=== PATIENT | male | born 1960 | race Caucasian/White ===

== ENCOUNTER → 2017-11-03 | Outpatient (CLI) | payer OTHER ==
[~2017-11-03] VITALS: Ht 172.7 cm; Wt 115.7 kg
[~2017-11-03] MED LIST: ATORVASTATIN CA40 MG PO; GLUCOSAMINE CH1 EAC8 PO; GLYBURIDE 2.52.5 MG PO; LISINOPRIL-HCT1 EAC2 PO; LOPID600 MG PO; METFORMIN HCL1000 MG PO; ZOLPIDEM TARTRA10 MG PO
--- NOTE | ~2017-11-03 | S ---
[facility] [place] [address] SURGICAL PATH RPT PROCEDURE Name: OPAL KANG Room #: REG [facility]#: [id number] Admission: 11/03/17 Date of : 60 Discharge: Report #: [id number] Path Case #: [id number] PATHOLOGY REPORT COLLECTION DATE: 11/03/2017 RECEIVED DATE: 11/06/2017 SUBMITTING PHYS: Dr. Gordo Berman OTHER PHYS: Dr. Rahul Saldaña SPECIMEN(S) RECEIVED: A.Bx of polyp at splenic flexure B.Bx of polyp at 70 cm * * * * * * * * * * * * FINAL DIAGNOSIS: A. Polyp, at splenic flexure, endoscopic biopsy: - Minute tubular adenoma. - Negative for high-grade dysplasia. B. Polyp, at 70 cm, endoscopic biopsy: - Multiple fragments showing hyperplastic polyps. - Negative for dysplasia. (IUV:pit; 11/07/2017) PATHOLOGIST: Manjula Vasquez M.D. REPORT ELECTRONICALLY SIGNED BY: Manjula Vasquez M.D. DATE/TIME: 11/07/2017 17:20 * * * * * * * * * * * * GROSS PATHOLOGY: A. Received in formalin labeled "Opal Kang, biopsy of polyp at splenic flexure" and consists of 2 hernandez mucosal biopsies each averaging 0.3 cm. The specimen is totally submitted as A1. B. Received in formalin labeled "Opal Kang, BX of polyp at 70 cm X4" and consists of 3 hernandez mucosal biopsies each averaging 0.4 cm. No additional tissue is present within the specimen container. The specimen is totally submitted as B1. (RUPALI; 11/06/2017) CLINICAL HISTORY: History of polyps, family history of colon cancer INITIAL CPT CODE(S): A; 27704 B; 43355 Professional services performed by [employer] at [address] [address] SURGICAL PATH RPT PROCEDURE Name: OPAL KANG Room #: REG [facility]#: [id number] Admission: 11/03/17 Date of : 60 Discharge: Report #: [id number] Path Case #: [id number] [address], [place] [address] Technical services performed by [employer] at [address] [place] [address], [facility] [address] [address]. [place] [address] PHONE: [phone] DIRECTOR: Brian Jackson M.D. * * * END OF REPORT * * *
--- NOTE | ~2017-11-03 | P ---
[facility] [place] [address] PROCEDURE REPORT Name: OPAL SABILLON Room #: REG [facility]#: [id number] Admission: 11/03/17 Attend Phys: Gordo Berman MD Discharge: Date of : 60 Report #: [id number] THIS REPORT FOR: //name// CC: Gordo Saldaña MD BRIEF HISTORY: The patient is a 57-year-old male. He has a history of multiple colon polyps. Also, mother had colon cancer about age 60. He presents for a followup colonoscopy. PREOPERATIVE DIAGNOSES: Family history of colon cancer and personal history of colon polyps. POSTOPERATIVE DIAGNOSES: 1. Multiple diminutive colon polyps. 2. Moderate sigmoid diverticulosis coli. MEDICATIONS: Deep sedation with propofol per Anesthesia. SPECIMEN: 1. Polyp, splenic flexure. 2. Polyps x 4 at 70 cm. ESTIMATED BLOOD LOSS: 3 mL. PROCEDURE: Colonoscopy to cecum and terminal ileum with biopsy. FINDINGS: Prior to propofol sedation, procedure of colonoscopy discussed with the patient as well as potential risks and its complications. He indicates he understands and desires to proceed. DESCRIPTION OF PROCEDURE: With the patient in left lateral decubitus position, digital examination was completed which revealed no abnormalities. Subsequently, the [employer] video colonoscope was introduced in the rectum, advanced under direct vision to the cecum. Done with minimal difficulty. The cecum was identified by the ileocecal valve and appendiceal orifice. I was able to visualize the distal segment of the terminal ileum, which was inspected and noted to be unremarkable. At that point, the scope was slowly withdrawn and careful circumferential views were obtained including retroflexing the scope in the ascending colon. As the scope was withdrawn, the mucosa was inspected. There were some limitations of prep, which required irrigation and suctioning. Reasonably, good views were obtained of the colon. As we withdrew the scope, no abnormalities were noted until the splenic flexure was reached; at which point, a diminutive polyp was seen and removed by biopsy. Scope was further withdrawn and at 70 cm segment, 4 diminutive polyps were seen and removed by biopsy. Scope was further withdrawn and no additional polyps were seen. Scope was [facility] [address] [place] [address] PROCEDURE REPORT Name: OPAL SABILLON [facility] [id number] Admission: 11/03/17 Attend Phys: Gordo Berman MD Discharge: Date of : 60 Report #: [id number]. As we withdrew the scope through the sigmoid colon, he was noted to have moderate to severe diverticular disease without endoscopic evidence of diverticulitis. Scope withdrawn in the rectum and upon retroflexion, no abnormalities were seen. Scope was withdrawn. The patient tolerated the procedure well. CONDITION OF THE PATIENT UPON DISCHARGE: Following procedure, the patient drowsy, aroused, conversant. He will be discharged home when fully ambulatory. INSTRUCTIONS TO THE PATIENT AND FAMILY AT THE TIME OF DISCHARGE: We will follow up on the pathology of the polyps; however, in view of his personal history and family history, we will have him return in 3 years for a followup colonoscopy. Suggest high fiber diet as well. Last colonoscopy was approximately 3 years ago. Withdrawal time from the cecum was 22 minutes and 15 seconds. <ELECTRONICALLY SIGNED> By: Gordo Berman MD 11/04/17 1331 [id number] Gordo Berman MD /nt
== END | disposition home or self-care (01) ==
LOC: GI 08:43
DX: Z09 Encounter for follow-up examination after completed treatment for conditions other than malignant neoplasm (principal); Z86.010 Personal history of colon polyps; Z80.0 Family history of malignant neoplasm of digestive organs; K63.5 Polyp of colon; K57.30 Diverticulosis of large intestine without perforation or abscess without bleeding; E11.9 Type 2 diabetes mellitus without complications; I10 Essential (primary) hypertension; Z85.828 Personal history of other malignant neoplasm of skin; Z79.899 Other long term (current) drug therapy; Z98.890 Other specified postprocedural states
CPT/HCPCS: 62110; 62900